=== PATIENT | female | born 1970 | race Caucasian/White ===

== ENCOUNTER 2016-10-20 08:52 | Emergency (ER) | payer MEDICAID ==
[2016-10-20 09:08] VITALS: TEMP 98.6
[2016-10-20] MEDS ORDERED: NS 1,000 ML IV ONE (09:21)
[2016-10-20 09:34] LABS: % IMMATURE GRANULYOCYTES 0.8 % (0.0-1.1); ABSOLUTE IMMATURE GRANULOCYTES 0.09 10^3/uL (0.00-0.10); ADD DIFF? NO; ADD MORPH? NO; ADD SCAN? NO; ATYPICAL LYMPHOCYTE FLAG 0 (0-99); FRAGMENT RBC FLAG 0 (0-99); HEMATOCRIT 47.4 % (38.0-47.0); HEMOGLOBIN 16.7 g/dL (12.6-16.3); LEFT SHIFT FLG 0 (0-99); LIPEMIA HEMOLYSIS FLAG 90 (0-99); MEAN CELL HEMOGLOBIN CONCENTR. 35.2 g/dL (32.4-36.7); MEAN CELL VOLUME 85.3 fL (81.5-99.8); MEAN PLATELET VOLUME 9.6 fL (8.7-11.7); PLATELET CLUMPS FLAG 0 (0-99); PLATELET COUNT 367 10^3/uL (150-400); RED BLOOD CELL COUNT 5.56 10^6/uL (4.18-5.33); RED CELL DISTRIBUTION WIDTH 12.8 % (11.5-15.2)
[2016-10-20 09:44] LABS: ALANINE AMINOTRANSFERASE 43 IU/L (9-52); ALBUMIN 5.1 g/dL (3.5-5.0); ALKALINE PHOSPHATASE 111 IU/L (38-126); ANION GAP 21 mEq/L (8-16); ASPARTATE AMINOTRANSFERASE 39 IU/L (14-46); BILIRUBIN,TOTAL 1.8 mg/dL (0.1-1.4); BILIRUBIN-CONJUGATED 0.9 mg/dL (0.0-0.5); BILIRUBIN-UNCONJUGATED 0.9 mg/dL (0.0-1.1); CALCIUM 9.6 mg/dL (8.5-10.4); CARBON DIOXIDE 23 mEq/l (22-31); CHLORIDE 97 mEq/L (97-110); CREATININE 0.8 mg/dL (0.6-1.0); GLOMERULAR FILTRATION RATE > 60; GLUCOSE 117 mg/dL (70-100); POTASSIUM 4.4 mEq/L (3.5-5.2); SODIUM 141 mEq/L (134-144)
[2016-10-20 09:50] LABS: APTT 31.7 SEC (23.0-38.0); INR 0.98 (0.83-1.16); PROTIME(PATIENT) 12.9 SEC (12.0-15.0)
[2016-10-20 10:58] LABS: COLOR YELLOW; LEUKOCYTE ESTERASE,URINE NEGATIVE (NEGATIVE); NITRITE,URINE NEGATIVE (NEGATIVE)
[2016-10-20] MEDS ORDERED: ONDANSETRON 4 MG/2 ML VIAL IVP ONE (11:00)
[2016-10-20 11:02] LABS: BACTERIA TRACE /hpf (NONE SEEN); MUCUS TRACE /lpf (NONE-1+)
--- NOTE | 2016-10-20 11:08 | US ---
Limited Right Upper Quadrant Ultrasound History: Right upper quadrant pain. Comparison: None available. Findings: The liver is diffusely echogenic with scattered areas of focal fatty sparing. There is no i ntrahepatic biliary dilatation. The common bile duct measures 3 mm and is normal. There is an echogen ic structure along the hepatic margin of the gallbladder that measures 10 mm. The gallbladder is othe rwise normal. The right kidney measures 10.8 cm and has normal echotexture and contour without hydron ephrosis. The visible aorta is normal caliber. The visible portions of the pancreas are normal with limited visualization of the pancreatic head and tail. Impression: 1. 10 mm gallbladder polyp. For a polyp of this size, surgical consultation is recommended per the [employer]. 2. Fatty liver with focal fatty sparing. Findings and recommendations discussed with Bharat Bloom today at 1103 hours.
--- NOTE | 2016-10-20 11:09 | EDPHY ---
H & P Stated Complaint: LUQ after drinking vodka Source: Patient Exam Limitations: No limitations - Personal History LMP (Females 10-55): 22-28 Days Ago Current Tetanus Diphtheria and Acellular Pertussis (TDAP): Yes Tetanus Vaccine Date: 2013 - Medical/Surgical History Hx Asthma: No Hx Chronic Respiratory Disease: No Hx Diabetes: No Hx Cardiac Disease: Yes Hx Renal Disease: No Hx Cirrhosis: No Hx Alcoholism: No Hx HIV/AIDS: No Hx Splenectomy or Spleen Trauma: No Other PMH: depression, HTN - Social History Smoking Status: Never smoked HPI/ROS: CHIEF COMPLAINT: HISTORY OF PRESENT ILLNESS: REVIEW OF SYSTEMS: Ten systems reviewed and are negative unless otherwise noted in the HPI EXAMINATION: General Appearance: Alert, no distress Head: normocephalic, atraumatic Eyes: Pupils equal and round, no conjunctival pallor or injection ENT, Mouth: Mucous membranes moist Neck: Normal inspection, supple, non-tender Respiratory: Lungs are clear to auscultation Cardiovascular: Regular rate and rhythm Gastrointestinal: Abdomen is soft and nontender. No tympany. No rigidity. Non- acute abdomen. Back: non-tender, no bony abnormalities Neurological: A&O, nonfocal, normal gait Skin: Warm and dry, no rash Extremities: Nontender, no pedal edema Psychiatric: Mood and affect normal DIFFERENTIAL DIAGNOSES: Including but not limited to MDM: 11:05 a.m. abdominal pain after heavy drinking over the weekend. Labs are pending but I was contacted by the radiologist regarding her ultrasound. The gallbladder and pancreas have no acute findings, but he did note a 10 mm polyp in the gallbladder. He recommends an outpatient surgical follow-up for this. 11:15 a.m. I have discussed this with the patient, including informing her of the 10 mm polyp. I am going to obtain a CT scan of the abdomen pelvis to rule out any duodenitis or other pathology of the abdomen. She is comfortable with this plan. She is resting comfortably in asking to eat food at this time. She is in no acute distress. 1:00 p.m. notified by Radiology with no acute findings on the CT scan. There is an incidental note of a nodule in the left lower lobe of the lung. Mild laboratory abnormalities that are non concerning at this time. I discussed this with the patient. She is feeling significantly better and wants to be discharged home. At this time she will be discharged home in stable condition with instructions to refrain from alcohol intake. She will increase her fluid intake, and I recommend Maalox or Kaopectate as needed. Return to ER for worsening pain, vomiting, fever or flank pain. Follow-up with primary care physician otherwise. She is comfortable with this plan and discharged home stable condition. ED Precautions: Worsening pain. Fever. Bloody stools. Bloody emesis. Constipation or diarrhea. SUPERVISION: Independently evaluated and case discussed with [facility] ( [facility]) Constitutional: Initial Vital Signs Temperature (C) 37.0 C 10/20/16 08:52 Heart Rate 81 10/20/16 08:52 Respiratory Rate 18 10/20/16 08:52 Blood Pressure 138/78 H 10/20/16 08:52 O2 Sat (%) 98 10/20/16 08:52 O2 Delivery Mode Room Air Allergies/Adverse Reactions: codeine Allergy (Verified 04/12/16 07:23) Home Medications: Medication Instructions Recorded Paxil 07/17/15 traZODONE 07/17/15 Ondansetron Odt [Zofran Odt 4 mg 4 mg PO Q4 PRN #12 tab 10/20/16 (*)] Synthroid 10/20/16 Medical Decision Making Other Provider: The patient wasevaluatedand managed by themidlevel provider. Idiscussed the patient's presentation and course with thephysicianassistantor nurse practitionerand agree with theevaluation. My co-signature indicates that I have reviewed this chart and I agree with the findings and plan of care as documented. I am the secondary supervisingphysician. (Haley Poole) - Data Points Laboratory Results: Laboratory Results 10/20/16 09:00 10/20/16 09:00 Medications Given: Discontinued Medications Sodium Chloride (Ns) 1,000 mls @ 0 mls/hr IV ONCE ONE PRN Reason: Wide Open Stop: 10/20/16 09:22 Last Admin: 10/20/16 09:50 Dose: 1,000 mls Ondansetron HCl (Zofran) 4 mg IVP EDNOW ONE Stop: 10/20/16 11:01 Last Admin: 10/20/16 11:05 Dose: 4 mg Departure - Departure Disposition: Home, Routine, Self-Care Clinical Impression: Abdominal pain, Nausea & vomiting, Fatty liver, Polyp of gallbladder, Pulmonary nodule Condition: Good Instructions: Acute Abdominal Pain (ED), Abuse of Alcohol (ED), Pulmonary Nodules (ED) Additional Instructions: follow-up with primary care physician for ongoing monitoring of the pulmonary nodule. Follow-up with General surgery for the biliary polyp. Return to the ER for worsening pain, fever, chills. Referrals: NONE *PRIMARY CARE P,. [Primary Care Provider] - As per Instructions [facility] [Outside] - As per Instructions Burak Davidson MD [Medical Doctor] - As per Instructions Prescriptions: Ondansetron Odt [Zofran Odt 4 mg (*)] 4 mg PO Q4 PRN #12 tab PRN Reason: Nausea/Vomiting, Use 1st
[2016-10-20] MEDS ORDERED: IOPAMIDOL (ISOVUE-300) 100 ML BTL IV ONE (11:26)
--- NOTE | 2016-10-20 12:06 | CT ---
CT Scan of the Abdomen and Pelvis (With Contrast) Clinical Indications: Epigastric pain, elevated white count Technique: 95 mL of Isovue 300 were given intravenously by machine power injection. Multidetector helical CT imaging was performed from the diaphragm to the symphysis pubis. Dose reduction techniques were utilized. Findings: Abdomen: There is no basilar pneumonia or pleural fluid. There is a 6.5 x 4.7 mm noncalcified solid left lower lobe lateral pulmonary nodule (image 6 series 2). Heart size is normal without pericardial effusion. The liver, plump spleen, adrenal glands, kidneys, pancreas, mesentery and retroperitoneum are normal. The abdominal aorta is normal in size. There is no evidence for bowel obstruction. There is no free air or free fluid. Pelvis: The urinary bladder is unremarkable. No free fluid in the pelvis. Pelvic small bowel loops are normal. There is minimal diverticulosis of the sigmoid colon without evidence of diverticulitis. There is a normal retrocecal appendix. The terminal ileum looks normal. The uterus and adnexal region s look normal. Bone window evaluation: Negative Impression: No source for epigastric pain identified. Results called to MANDEEP Fregoso at noon. . Final results are concordant with the preliminary interpretation. General information for patients regarding this examination can be found at [email or web address]. If you have questions or comments about this report, please contact me at [phone] (hospital) or [phone] (cell).
[2016-10-20 12:38] VITALS: PULSE 86; RESP 16
[2016-10-20 13:39] VITALS: BP 134/82; O2SAT 95
== END 2016-10-20 13:37 | disposition home or self-care (01) ==
LOC: EDUNIT#
DX: K82.4 Cholesterolosis of gallbladder (principal); R11.2 Nausea with vomiting, unspecified; R91.1 Solitary pulmonary nodule; I10 Essential (primary) hypertension
CPT/HCPCS: 96374; J2405; Q9967

== ENCOUNTER 2018-09-27 16:03 | Emergency (ER) | payer SELFPAY ==
[2018-09-27] MEDS ORDERED: ONDANSETRON 4 MG/2 ML VIAL IVP ONE (16:10)
[2018-09-27] MEDS ORDERED: NS 1,000 ML IV ONE (16:10)
--- NOTE | 2018-09-27 16:10 | EDPHY ---
H & P Time Seen by Provider: 09/27/18 16:06 HPI/ROS: HPI: This is a 48-year-old female who presents with Chief Complaint: Fall, alcohol intoxication Location: Head, neck Quality: Injury Duration: Unknown Signs and Symptoms: No bleeding, no radiation, no numbness, no weakness, no tingling, no incontinence, no decreased range of motion, no swelling, no pain, no fever Timing: Acute Severity: Mild Context: Patient is brought in by EMS after a bystander found her lying flat on her back in the snow approximately a block and a half from her condo 1 hr prior to arrival to the emergency room. Patient reports that she was heading to the bus stop which was in opposite direction for which she fell. Patient admits that she has "drank a lot of alcohol today." EMS placed patient in a cervical collar but patient denies neck pain. She cannot tell me exactly how she fell or who found her. Denies LOC/head injury/neck pain/dizziness/nausea/ vomiting/amnesia. Does not take any blood thinners. Modifying Factors: Cervical collar Comment: ROS: A comprehensive 10 system review of systems is otherwise negative aside from elements mentioned in the history of present illness. MEDICAL/SURGICAL/SOCIAL HISTORY: Medical history: Depression, hypertension, hypothyroidism Surgical history: Denies Social history: Nonsmoker. Denies drug use. CONSTITUTIONAL: Intoxicated, slurred speech, overweight middle-aged white female, awake and alert, no obvious distress HEENT: Atraumatic and normocephalic, PERRL, EOMI. no globe entrapment, no raccoon eyes. no Crowley signs.Tympanic membranes clear. No tympanic membrane rupture. Nares patent; no septal hematoma. Oropharynx clear, no exudate and moist pink mucosa. No malocclusion. no dental trauma. Airway patent. No lymphadenopathy. NECK: supple, cervical collar in place Cardiovascular: Normal S1/S2, regular rate, regular rhythm, without murmur rub or gallop. PULMONARY/CHEST: Symmetrical and nontender. no crepitus. Clear to auscultation bilaterally. Good air movement. No accessory muscle usage. ABDOMEN: Soft, nondistended, nontender, no ecchymosis, no rebound, no guarding , no peritoneal signs, no masses or organomegaly. No CVAT. PELVIC: no pain with rocking; bilateral hips flexion 125 degrees, extension 30 degrees, with no pain internal rotation and no pain external rotation. BACK: No midline tenderness, no paraspinous spasm, deep tendon reflexes 2/2, no pain with straight leg raise EXTREMITIES: 2/2 pulses, no deformities, no clubbing, no cyanosis or edema. NEUROLOGICAL: no focal neuro deficits. GCS 15. SKIN: Warm and dry, no erythema. no rash. Good capillary refill. Source: Patient, EMS Exam Limitations: Intoxication - Personal History Tetanus Vaccine Date: 2013 - Medical/Surgical History Hx Asthma: No Hx Chronic Respiratory Disease: No Hx Diabetes: No Hx Cardiac Disease: Yes Hx Renal Disease: No Hx Cirrhosis: No Hx Alcoholism: No Hx HIV/AIDS: No Hx Splenectomy or Spleen Trauma: No Other PMH: depression, HTN - Social History Smoking Status: Never smoked Constitutional: Initial Vital Signs Temperature (C) 36.3 C 09/27/18 16:19 Heart Rate 80 09/27/18 16:19 Respiratory Rate 16 09/27/18 16:19 Blood Pressure 135/84 H 09/27/18 16:19 O2 Sat (%) 95 09/27/18 16:19 O2 Delivery Mode Room Air Allergies/Adverse Reactions: codeine Allergy (Verified 04/12/16 07:23) Home Medications: Medication Instructions Recorded Paxil 07/17/15 traZODONE 07/17/15 Ondansetron Odt [Zofran Odt 4 mg 4 mg PO Q4 PRN #12 tab 10/20/16 (*)] Synthroid 10/20/16 Medical Decision Making - Diagnostics Imaging Results: Imaging Impressions Cervical Spine CT 09/27/18 16:11 Impression: 1. No acute fracture or subluxation. 2. If the patient has persistent pain or neurologic deficits, consider cervical spine MRI. Ligia Lee was notified these findings by telephone at 4:50 PM on 09/27/[address] 09/27/18 16:11 Impression: No acute intracranial hemorrhage or calvarial fracture. Ligia Lee was notified of these findings by telephone at 4:48 PM on 09/27/2018 ED Course/Re-evaluation: Vital signs reviewed and stable upon arrival. Agree with maintaining patient cervical collar. Based on nexus protocol of alcohol intoxication and amnesia with fall, will obtain head CT scan and cervical CT scan Patient given 1 L normal saline and IV Zofran 4 mg Breathalyzer= 207 1630: Notified by RN that patient has removed the cervical collar. no midline tenderness, flexion 45 degrees, extension 45 degrees, right and left lateral flexion 45 degrees. 1643: Called by radiologist, Dr. Trejo, who advised that head CT scan shows no acute intracranial process. Cervical CT scan shows degenerative changes but no acute fracture. Plan is to keep patient until more sober and then give a road test and see if she can ambulate without deficits and then [facility]. 1745: Patient ambulating naked in room without any ataxia. Patient was given a voucher for cab to go to the [facility]. No signs of neurovascular compromise/tenting of skin/compartment syndrome/ extremities and joints examined above and below area of concern and are neurovascularly intact. This patient was seen under the supervision of my secondary supervising physician. I evaluated care for this patient independently. Discussed this patient with Dr. Bailey who did not see the patient. Differential Diagnosis: Head injury including but not limited to concussion, skull fracture, intraparenchymal contusion, subarachnoid, subdural and epidural hematoma. - Data Points Medications Given: Discontinued Medications Sodium Chloride (Ns) 1,000 mls @ 0 mls/hr IV ONCE ONE; Wide Open PRN Reason: Protocol Stop: 09/27/18 16:11 Last Admin: 09/27/18 16:41 Dose: 1,000 mls Ondansetron HCl (Zofran) 4 mg IVP EDNOW ONE Stop: 09/27/18 16:11 Last Admin: 09/27/18 16:56 Dose: Not Given Departure - Departure Disposition: Home, Routine, Self-Care Clinical Impression: Alcoholic intoxication without complication, Degenerative disc disease, cervical Condition: Good Instructions: Alcohol Intoxication (ED) Additional Instructions: Please refrain from drinking alcohol excessively. You are medically cleared to be discharged to the [facility]. Referrals: [facility] [Outside] - As per Instructions
[2018-09-27 17:37] VITALS: BP 126/83
== END 2018-09-27 17:22 | disposition home or self-care (01) ==
LOC: EDUNIT#
DX: F10.920 Alcohol use, unspecified with intoxication, uncomplicated (principal); M50.30 Other cervical disc degeneration, unspecified cervical region; I10 Essential (primary) hypertension; E03.9 Hypothyroidism, unspecified; F32.9 Major depressive disorder, single episode, unspecified; E86.9 Volume depletion, unspecified
CPT/HCPCS: 96374